=== PATIENT | female | born 1940 | race Caucasian/White ===

== ENCOUNTER 2017-06-01 07:27 | Outpatient (CLI) | payer MEDICARE, OTHER ==
[2017-06-01 10:45] LABS: BASOPHILS % (AUTO) 0.3 %; EOSINOPHILS % (AUTO) 0.8 %; HGB - HEMOGLOBIN 14.9 g/dL (12.0-16.0); LYMPHOCYTES % (AUTO) 2.7 %; MEAN CORPUSCULAR HEMOGLOBIN 31.5 pg (27.0-31.0); MEAN CORPUSCULAR HGB CONC 33.6 g/dL (32.0-36.0); MEAN CORPUSCULAR VOLUME 93.7 fL (81.0-99.0); MEAN PLATELET VOLUME 8.6 fL (7.9-10.8); MONOCYTES % (AUTO) 2.5 %; NEUTROPHILS % (AUTO) 93.7 %; PLT - PLATELET COUNT 144 10^3/uL (130-450); RED BLOOD COUNT 4.73 10^6/uL (4.20-5.40); RED CELL DISTRIBUTION WIDTH 12.4 % (12.0-15.0); WHITE BLOOD COUNT 6.9 x10^3/uL (4.8-10.8)
[2017-06-01 11:02] LABS: ABNORMAL LYMPHS % (MANUAL) 0 %
[2017-06-01 11:05] LABS: ALBUMIN/GLOBULIN RATIO 1.4 (1.0-2.2); ALKALINE PHOSPHATASE 58 IU/L (42-121); ALT ALANINE AMINOTRANSFERASE 17 IU/L (10-60); AST ASPARTATE AMINOTRANSFERASE 23 IU/L (10-42); BILIRUBIN,TOTAL 1.6 mg/dL (0.2-1.0); BUN - BLOOD UREA NITROGEN 22 mg/dL (6-20); CALCIUM 9.1 mg/dL (8.5-10.3); CARBON DIOXIDE - CO2 23 mmol/L (21-32); CHLORIDE 106 mmol/L (101-111); CHOL/HDL RATIO 2.7 (<4.4); CHOLESTEROL 195 mg/dL; CREATININE 0.7 mg/dL (0.4-1.0); GFR - MDRD 81 (>89); GLUCOSE 141 mg/dL (70-100); HDL CHOLESTEROL 73 mg/dL; LDL CHOLESTEROL,CALCULATED 113 mg/dL; LDL/HDL RATIO 1.5 (<4.4); SODIUM 137 mmol/L (135-145); TOTAL PROTEIN 6.9 g/dL (6.7-8.2); VLDL CHOLESTEROL 9 mg/dL
[2017-06-01 11:10] LABS: BAND NEUTROPHILS % (MANUAL) 3 %; EOSINOPHILS # (MANUAL) 0.1 10^3/uL (0-0.7); LYMPHOCYTES # (MANUAL) 0.1 10^3/uL (1.5-3.5); LYMPHOCYTES % (MANUAL) 1 %; MONOCYTES # (MANUAL) 0.1 10^3/uL (0.0-1.0); NEUTROPHILS # (MANUAL) 6.6 10^3/uL (1.5-6.6); NEUTROPHILS % (MANUAL) 93 %; RBC MORPHOLOGY (MULTIPLE) NORMAL APPEARANCE (NORMAL)
[2017-06-01 11:11] LABS: DIFFERENTIAL COMMENT MANUAL DIFFERENTIAL; PLATELET ESTIMATE, MANUAL NORMAL (130-450,000) (NORMAL); PLATELET MORPHOLOGY NORMAL APPEARANCE (NORMAL)
== END 2017-06-01 07:28 | disposition home or self-care (01) ==
LOC: LAB.F 07:27
PROVIDERS: ATTEND Nurse Practitioner Family
DX: R51 Headache (principal); R03.0 Elevated blood-pressure reading, without diagnosis of hypertension; Z13.220 Encounter for screening for lipoid disorders
CPT/HCPCS: 36415; 80053; 80061; 83721; 84443; 85025; 85651

== ENCOUNTER 2017-06-02 07:34 | Outpatient (CLI) | payer MEDICARE, OTHER ==
[2017-06-02 11:13] LABS: HEMOGLOBIN A1C 0.56 g/dL; HEMOGLOBIN A1C % 5.4 % (4.6-6.2)
== END 2017-06-02 07:35 | disposition home or self-care (01) ==
LOC: LAB.F 07:34
PROVIDERS: ATTEND Nurse Practitioner Family
DX: R73.9 Hyperglycemia, unspecified (principal)
CPT/HCPCS: 36415; 82947; 83036

== ENCOUNTER 2017-06-06 11:00 | Outpatient (CLI) | payer MEDICARE, OTHER ==
--- NOTE | 2017-06-06 14:14 | CT Report ---
DATE OF SERVICE: 06/06/2017 CT BRAIN WITHOUT CONTRAST: 06/06/2017 CLINICAL INDICATION: Headache. TECHNIQUE: Axial CT images of the brain were obtained without intravenous contrast. No previous CT is available for comparison. FINDINGS: The ventricles and sulci are normal in size, shape and configuration. The basilar cisterns are patent. There is no evidence of hemorrhage, mass effect, or midline shift. The visualized orbital contents and paranasal sinuses are unremarkable. IMPRESSION: NORMAL CT OF THE BRAIN WITHOUT CONTRAST. In accordance with CT protocol optimization, one or more of the following dose reduction techniques were utilized for this exam: automated exposure control, adjustment of mA and/or KV based on patient size, or use of iterative reconstructive technique. TD: 06/06/2017 14:13
== END 2017-06-06 11:01 | disposition home or self-care (01) ==
LOC: DI 11:00
PROVIDERS: ATTEND Nurse Practitioner Family
DX: R51 Headache (principal)
CPT/HCPCS: 70450

== ENCOUNTER 2020-10-15 10:15 | Outpatient (CLI) | payer MEDICARE, OTHER ==
[2020-10-15 16:19] LABS: BASOPHILS # (AUTO) 0.1 10^3/uL (0.0-0.1); BASOPHILS % (AUTO) 1.4 %; EOSINOPHILS # (AUTO) 0.2 10^3/uL (0.0-0.7); EOSINOPHILS % (AUTO) 5.9 %; HGB - HEMOGLOBIN 14.3 g/dL (12.0-16.0); LYMPHOCYTES # (AUTO) 1.8 10^3/uL (1.5-3.5); LYMPHOCYTES % (AUTO) 51.7 %; MEAN CORPUSCULAR HEMOGLOBIN 31.2 pg (27.0-31.0); MEAN CORPUSCULAR HGB CONC 32.5 g/dL (32.0-36.0); MEAN CORPUSCULAR VOLUME 95.9 fL (81.0-99.0); MEAN PLATELET VOLUME 10.2 fL (7.9-10.8); MONOCYTES # (AUTO) 0.4 10^3/uL (0.0-1.0); MONOCYTES % (AUTO) 9.9 %; NEUTROPHILS # (AUTO) 1.1 10^3/uL (1.5-6.6); NEUTROPHILS % (AUTO) 30.8 %; PLT - PLATELET COUNT 172 10^3/uL (130-450); RED BLOOD COUNT 4.59 10^6/uL (4.20-5.40); RED CELL DISTRIBUTION WIDTH 12.4 % (12.0-15.0); WHITE BLOOD COUNT 3.5 x10^3/uL (4.8-10.8)
[2020-10-15 16:36] LABS: ALBUMIN 4.2 g/dL (3.2-5.5); ALBUMIN/GLOBULIN RATIO 1.5 (1.0-2.2); ALKALINE PHOSPHATASE 73 IU/L (42-121); ALT ALANINE AMINOTRANSFERASE 20 IU/L (10-60); AST ASPARTATE AMINOTRANSFERASE 24 IU/L (10-42); BILIRUBIN,TOTAL 1.5 mg/dL (0.2-1.0); BUN - BLOOD UREA NITROGEN 21 mg/dL (6-20); CALCIUM 9.9 mg/dL (8.5-10.3); CARBON DIOXIDE - CO2 27 mmol/L (21-32); CHLORIDE 105 mmol/L (101-111); CHOL/HDL RATIO 3.1 (<4.4); CHOLESTEROL 247 mg/dL; CREATININE 0.7 mg/dL (0.4-1.0); GFR - MDRD 80 (>89); GLUCOSE 95 mg/dL (70-100); HDL CHOLESTEROL 80 mg/dL; LDL CHOLESTEROL,CALCULATED 152 mg/dL; LDL/HDL RATIO 1.9 (<4.4); POTASSIUM 4.1 mmol/L (3.5-5.0); SODIUM 141 mmol/L (135-145); TRIGLYCERIDES 75 mg/dL; VLDL CHOLESTEROL 15 mg/dL
== END 2020-10-15 10:16 | disposition home or self-care (01) ==
LOC: LAB.S 10:15
PROVIDERS: ATTEND Internal Medicine
DX: R03.0 Elevated blood-pressure reading, without diagnosis of hypertension (principal); Z13.220 Encounter for screening for lipoid disorders
CPT/HCPCS: 36415; 80053; 80061; 83721; 85025

== ENCOUNTER 2020-12-22 08:00 | Outpatient (CLI) | payer MEDICARE, OTHER | END 2020-12-22 23:59 | disposition home or self-care (01) | LOC: LAB.S 08:00 | PROVIDERS: ATTEND Physician Assistant Medical | DX: M60.232 Foreign body granuloma of soft tissue, not elsewhere classified, left forearm (principal) | CPT/HCPCS: 87070; 87077; 87181; 87205 ==

== ENCOUNTER 2021-05-19 07:16 | Outpatient (CLI) | payer MEDICARE, OTHER ==
[2021-05-19 15:11] LABS: BASOPHILS # (AUTO) 0.1 10^3/uL (0.0-0.1); BASOPHILS % (AUTO) 1.8 %; EOSINOPHILS # (AUTO) 0.2 10^3/uL (0.0-0.7); EOSINOPHILS % (AUTO) 5.4 %; HCT - HEMATOCRIT 44.8 % (37.0-47.0); HGB - HEMOGLOBIN 14.8 g/dL (12.0-16.0); LYMPHOCYTES # (AUTO) 1.5 10^3/uL (1.5-3.5); LYMPHOCYTES % (AUTO) 45.5 %; MEAN CORPUSCULAR HEMOGLOBIN 31.6 pg (27.0-31.0); MEAN CORPUSCULAR VOLUME 95.5 fL (81.0-99.0); MEAN PLATELET VOLUME 10.3 fL (7.9-10.8); MONOCYTES # (AUTO) 0.4 10^3/uL (0.0-1.0); MONOCYTES % (AUTO) 11.1 %; NEUTROPHILS # (AUTO) 1.2 10^3/uL (1.5-6.6); NEUTROPHILS % (AUTO) 36.2 %; PLT - PLATELET COUNT 196 10^3/uL (130-450); RED BLOOD COUNT 4.69 10^6/uL (4.20-5.40); RED CELL DISTRIBUTION WIDTH 12.4 % (12.0-15.0); WHITE BLOOD COUNT 3.3 x10^3/uL (4.8-10.8)
[2021-05-19 15:47] LABS: ALBUMIN/GLOBULIN RATIO 1.3 (1.0-2.2); ALKALINE PHOSPHATASE 67 IU/L (42-121); ALT ALANINE AMINOTRANSFERASE 20 IU/L (10-60); AST ASPARTATE AMINOTRANSFERASE 23 IU/L (10-42); BILIRUBIN,TOTAL 1.2 mg/dL (0.2-1.0); BUN - BLOOD UREA NITROGEN 19 mg/dL (6-20); CALCIUM 9.8 mg/dL (8.5-10.3); CARBON DIOXIDE - CO2 27 mmol/L (21-32); CHLORIDE 104 mmol/L (101-111); CHOL/HDL RATIO 2.9 (<4.4); CHOLESTEROL 225 mg/dL; CREATININE 0.9 mg/dL (0.4-1.0); GFR - MDRD 60 (>89); GLUCOSE 94 mg/dL (70-100); HDL CHOLESTEROL 78 mg/dL; LDL CHOLESTEROL,CALCULATED 137 mg/dL; LDL/HDL RATIO 1.8 (<4.4); POTASSIUM 4.1 mmol/L (3.5-5.0); SODIUM 138 mmol/L (135-145); TRIGLYCERIDES 50 mg/dL; VLDL CHOLESTEROL 10 mg/dL
== END 2021-05-19 07:17 | disposition home or self-care (01) ==
LOC: LAB.S 07:16
PROVIDERS: ATTEND Internal Medicine
DX: E78.5 Hyperlipidemia, unspecified (principal); R73.9 Hyperglycemia, unspecified; R03.0 Elevated blood-pressure reading, without diagnosis of hypertension
CPT/HCPCS: 36415; 80053; 80061; 83721; 85025

== ENCOUNTER 2022-06-14 21:06 | Outpatient (CLI) | payer MEDICARE, OTHER | END 2022-06-14 21:07 | disposition critical access hospital (66) | LOC: EMS 21:06 | DX: M54.2 Cervicalgia (principal); R51.9 Headache, unspecified; W01.0XXA Fall on same level from slipping, tripping and stumbling without subsequent striking against object, initial encounter; Y92.009 Unspecified place in unspecified non-institutional (private) residence as the place of occurrence of the external cause | CPT/HCPCS: A0425; A0429 ==

== ENCOUNTER 2022-06-14 21:47 | Emergency (ER) | payer MEDICARE, OTHER ==
--- NOTE | 2022-06-14 21:54 | ED Physician Documentation ---
History of Present Illness - Stated complaint Stated Complaint: GLF, NECK PAIN - Additonal information Additional information: Patient 82-year-old female presenting with chief complaint of fall and left- sided neck pain. Tripped on a wooden floor falling onto the left side of her head and neck. Denies loss of consciousness or use of blood thinning medications. Reports significant neck pain. Took a 5-325 [place] prescribed to her at approximately 2030 hrs. with minimal relief. Review of Systems Constitutional: denies: Fever Eyes: denies: Loss of vision Ears: denies: Loss of hearing Nose: denies: Rhinorrhea / runny nose Throat: denies: Dental pain / toothache Cardiac: denies: Chest pain / pressure Respiratory: denies: Dyspnea GI: denies: Abdominal Pain : denies: Dysuria Skin: denies: Rash Musculoskeletal: reports: Neck pain Neurologic: denies: Generalized weakness PD PAST MEDICAL HISTORY - Present Medications Home Medications: Ambulatory Orders Medication Instructions Recorded Confirmed HYDROcod/ACETAM 5/325 [[place] 5/325] 1 - 2 ea PO Q6H PRN #14 tablet 06/15/22 - Allergies Allergies/Adverse Reactions: Allergies Allergy/AdvReac Type Severity Reaction Status Date / Time No Known Drug Allergies Allergy Verified 06/14/22 21:53 PD ED PE NORMAL - Vitals Vital signs reviewed: Yes - General General: Alert and oriented X 3, Other (Acutely distressed) - HEENT HEENT: Atraumatic, PERRL - Neck Neck: Other (C-collar in place) - Cardiac Cardiac: RRR - Respiratory Respiratory: No respiratory distress - Abdomen Abdomen: Normal bowel sounds, Non tender - Back Back: No spinal TTP Results - Vitals Vitals: Vital Signs - 24 hr 06/14/22 06/14/22 06/15/22 21:54 23:28 00:30 Temperature 36.9 C Heart Rate 75 66 67 Respiratory 16 16 18 Rate Blood Pressure 160/63 H 138/59 H 132/53 H O2 Saturation 97 94 94 06/15/22 06/15/22 06/15/22 01:30 02:30 04:30 Temperature 36.8 C Heart Rate 68 62 67 Respiratory 17 15 17 Rate Blood Pressure 168/63 H 153/61 H 100/68 O2 Saturation 99 98 95 Oxygen O2 Source Room air - Labs Labs: Laboratory Tests 06/15/22 06/15/2206/15/23 00:24 00:25 00:25 WBC 6.2 RBC 4.51 Hgb 14.1 Hct 42.1 MCV 93.3 MCH 31.3 H MCHC 33.5 RDW 11.9 L Plt Count 146 MPV 9.8 Neut # (Auto) 4.7 Lymph # (Auto) 1.1 L Saunders # (Auto) 0.3 Eos # (Auto) 0.0 Baso # (Auto) 0.0 Absolute Nucleated RBC 0.00 Nucleated RBC % 0.0 Sodium 139 Potassium 3.8 Chloride 107 Carbon Dioxide 21 Anion Gap 11.0 BUN 16 Creatinine 0.7 Estimated GFR (MDRD) 80 L Glucose 136 H Calcium 9.7 Total Bilirubin 1.0 AST 26 ALT 21 Alkaline Phosphatase 80 Total Protein 6.7 Albumin 3.9 Globulin 2.8 Albumin/Globulin Ratio 1.4 Lipase 40 SARS-CoV-2 (PCR) NOT DETECTED PD Medical Decision Making - ED course Complexity details: reviewed results, re-evaluated patient, considered differential, d/w patient, d/w family, d/w golf tournament consultant ED course: Patient is 82-year-old female presenting to the emergency department with left- sided neck pain after fallThat occurred earlier this evening. No reportedLoss of consciousness however patient was uncertain whether or not she had struck her head against an object. Fell occur in the family kitchen. No reported use of blood thinning medications. No focal or lateralizing neurologic deficits on arrival to the emergency department. Patient arrived with c-collar in place. No spinal tenderness on exam. CT head and cervical spine demonstrated a type III odontoid fracture with involvement of the left vertebral foramen. Upon this finding imaging was sent and urgent consultation requested with [facility]. Upon review of imaging sent to Dr. Mayen, Recommended immobilization of the neck after CTA confirms no vascular injury and follow-up on outpatient basis. Upon review CTA does not show any indications of aneurysm, dissection or other vascular injury. Patient boarded in the emergency department for several hours as her [place] c-collar was ill fitting and was not providing adequate restriction of her cervical spine. Ultimately an [place] collar was ordered from [facility] and delivered by EMS personnel. Patient was fitted into the [place] collar while in the emergency department. She was reevaluated and remained neurovascularly intact at that time. At this time will discharge for follow-up with the [facility] spine [facility]. Clear return precautions given prior to discharge. Departure - Departure Disposition: 01 Home, Self Care Clinical Impression: Type III fracture of odontoid process Qualifiers: Encounter type: initial encounter Fracture type: closed Qualified Code(s): S12.120A - Other displaced dens fracture, initial encounter for closed fracture Instructions: ED Soft Collar, ED Fx Comp Vertebral Follow-Up: OUMOU MAYEN MD [Physician No Access] - Prescriptions: HYDROcod/ACETAM 5/325 [[place] 5/325] 1 - 2 ea PO Q6H PRN #14 tablet PRN Reason: Pain Comments: Thank you for allowing us to care for you today at [facility]. Today in the emergency department you were diagnosed with a fracture to your second cervical vertebra. Your specific diagnosis is known as a type III odontoid fracture. This is an unstable spinal cord fracture and it is extremely important that you continue to wear the cervical collar given here in the emergency department at all times. I did discuss your care directly with the team at [facility]. Attached you will find contact information for Dr. Oumou Mayen M.D. The spinal specialist who is aware of your case. The [facility] will be contacting you in the next 1 to 2 days to set up a follow-up appointment but I recommend that you contact them first in order to ensure a timely follow-up appointment. Their direct contact number is [phone]. I have sent some medication for pain control to your preferred pharmacy. Please be aware that this medication is both sedating and habit-forming. It does increase your risk for falls and had like you to be extraordinarily careful while taking this medication. If anytime you develop any new or worsening symptoms such as worsening pain or if you begin to develop any strokelike symptoms such as facial droop or weakness in your arms or legs it is importantly return to the emergency department immediately for further evaluation and treatment.
[2022-06-14] MEDS ORDERED: oxyCODONE 5 MG TABLET PO STA (21:56)
[2022-06-14] MEDS ORDERED: iohexoL-300 100 ML VIAL ONE (22:07)
--- NOTE | 2022-06-15 00:16 | CT Report ---
PROCEDURE: CERVICAL SPINE WO INDICATIONS: fall TECHNIQUE: Noncontrast 3 mm thick sections acquired from the skull base to the T4 level. Sagittal and coronal r eformats were then constructed. For radiation dose reduction, the following was used: automated exp osure control, adjustment of mA and/or kV according to patient size. COMPARISON: None. FINDINGS: Image quality: Excellent. Bones: There is a nondisplaced oblique type III odontoid fracture extending from the base of the odo ntoid into the left body of C2 through the vertebral artery foramen and involving the articular surfa ce of C2 lateral mass. No other definite fractures. There is grade 1 retrolisthesis C5 on 6. Multilevel marked facet arthrop athy. Facet ankylosis on the right at C2-3. No visible rib arcs are intact. Soft tissues: Prevertebral soft tissues are normal in thickness. No paravertebral hematomas. No ap ical pneumothoraces. IMPRESSION: 1. Type III odontoid fracture extending through the left vertebral artery foramen and involving the l eft C1-2 articular surface. This is unstable. CT angiogram of the head and neck would be recommended for further assessment. 2. No other acute cervical spine fractures or pathologic subluxation. 3. Discussed with Dr. Ceballos in the emergency room at 1213 hours 06/15/2022. Reviewed by: Dora Cancino MD on 06/15/2022 12:26 AM PST Approved by: Dora Cancino MD on 06/15/2022 12:26 AM PST Station ID: [id number]
--- NOTE | 2022-06-15 00:17 | CT Report ---
PROCEDURE: HEAD WO INDICATIONS: fall TECHNIQUE: Noncontrast 4.5 mm thick angled axial sections acquired from the foramen magnum to the vertex. For r adiation dose reduction, the following was used: automated exposure control, adjustment of mA and/or kV according to patient size. COMPARISON: None. FINDINGS: Image quality: Excellent. CSF spaces: Basal cisterns are patent. No extra-axial fluid collections. Ventricles are normal in size and shape. Brain: No midline shift. No intracranial masses or hemorrhage. [place]-white matter interface is norm al. Skull and face: Calvarium and visualized facial bones are intact, without suspicious lesions. Sinuses: Visualized sinuses and mastoids are clear. IMPRESSION: 1. No CT evidence of acute intracranial trauma. Reviewed by: Dora Cancino MD on 06/15/2022 12:27 AM PST Approved by: Dora Cancino MD on 06/15/2022 12:27 AM [facility] Station ID: [id number]
[2022-06-15 00:31] LABS: BASOPHILS % (AUTO) 0.6 %; EOSINOPHILS % (AUTO) 0.5 %; HCT - HEMATOCRIT 42.1 % (37.0-47.0); HGB - HEMOGLOBIN 14.1 g/dL (12.0-16.0); LYMPHOCYTES # (AUTO) 1.1 10^3/uL (1.5-3.5); LYMPHOCYTES % (AUTO) 18.1 %; MEAN CORPUSCULAR HEMOGLOBIN 31.3 pg (27.0-31.0); MEAN CORPUSCULAR HGB CONC 33.5 g/dL (32.0-36.0); MEAN CORPUSCULAR VOLUME 93.3 fL (81.0-99.0); MEAN PLATELET VOLUME 9.8 fL (7.9-10.8); MONOCYTES # (AUTO) 0.3 10^3/uL (0.0-1.0); MONOCYTES % (AUTO) 5.3 %; NEUTROPHILS # (AUTO) 4.7 10^3/uL (1.5-6.6); NEUTROPHILS % (AUTO) 75.3 %; PLT - PLATELET COUNT 146 10^3/uL (130-450); RED BLOOD COUNT 4.51 10^6/uL (4.20-5.40); RED CELL DISTRIBUTION WIDTH 11.9 % (12.0-15.0); WHITE BLOOD COUNT 6.2 x10^3/uL (4.8-10.8)
[2022-06-15] MEDS ORDERED: iohexoL-300 100 ML VIAL ONE (00:38)
[2022-06-15 00:43] LABS: ALBUMIN 3.9 g/dL (3.2-5.5); ALBUMIN/GLOBULIN RATIO 1.4 (1.0-2.2); CALCIUM 9.7 mg/dL (8.5-10.3); CREATININE 0.7 mg/dL (0.4-1.0); POTASSIUM 3.8 mmol/L (3.5-5.0); TOTAL PROTEIN 6.7 g/dL (6.7-8.2)
[2022-06-15] MEDS ORDERED: iohexoL-300 100 ML VIAL IVP ONE (01:09)
--- NOTE | 2022-06-15 01:29 | CT Report ---
PROCEDURE: ANGIO HEAD W/WO INDICATIONS: C2 cervical spinal fracture CONTRAST: Omni 300 80ml TECHNIQUE: Precontrast 4.5 mm thick angled axial sections acquired from the foramen magnum to the vertex. Afte r the administration of intravenous contrast, 1 mm thick sections acquired through the [place] of [place] is. Postcontrast 4.5 mm thick sections then re-acquired from the foramen magnum to the vertex. 3-di mensional [id number]-yzkoehixg-fgccbypwhp (MIP) and/or volume rendering reformats were acquired of the c entral intracranial vasculature. For radiation dose reduction, the following was used: automated ex posure control, adjustment of mA and/or kV according to patient size. COMPARISON: Correlation made to CT performed earlier the same day. FINDINGS: Image quality: Excellent. Anterior circulation: Intracranial internal carotid arteries are normal in size and flow. The flow within the paired anterior cerebral arteries is normal and symmetric. The flow within the middle cer ebral arteries is normal and symmetric. The anterior communicating artery is seen. No aneurysms are seen. Posterior circulation: The inferior most sspeh-fa-rlto begins just at the level of the C2 fracture i nvolving the left vertebral foramen. The more distal (cranial) vertebral artery is normally opacified , symmetric with the contralateral side, and there is no flap to suggest dissection. Vertebral arteri es join to form a normal basilar artery without aneurysm at the tip. The right posterior cerebral art ashu arises from the right internal carotid artery. Flow within the posterior cerebral arteries is nor mal and symmetric. No aneurysms are seen. CSF spaces: Ventricles are normal in size and shape. Basal cisterns are patent. No extra-axial flu id collections. Brain: No midline shift. No intracranial bleeds or masses. [place]-white matter interface appears int act. Skull and face: Calvarium and facial bones appear intact, without suspicious lesions. Sinuses: Visualized sinuses and mastoids are clear. IMPRESSION: 1. No evidence of left vertebral artery abnormality distal to the vertebral foramen fracture at C2. 2. Normal CTA of the brain. Reviewed by: Dora Cancino MD on 06/15/2022 1:28 AM PST Approved by: Dora Cancino MD on 06/15/2022 1:28 AM PST Station ID: [email or web address]
--- NOTE | 2022-06-15 01:36 | CT Report ---
PROCEDURE: ANGIO NECK W INDICATIONS: C2 cervical spinal fracture CONTRAST: Omni 300 80ml TECHNIQUE: After the administration of intravenous contrast, 1.5 mm axial sections acquired from the aortic arch to the [place]. Coronal 3-D maximum intensity projection (MIP) and/or volume rendering ref ormats were then performed. For radiation dose reduction, the following was used: automated exposur e control, adjustment of mA and/or kV according to patient size. COMPARISON: None. FINDINGS: Image quality: Excellent. Carotid system: The great vessels demonstrate a conventional anatomy as they arise from the aortic a rch. The origins of the common carotid arteries appear patent. The common carotid arteries demonstr ate normal calibers and courses. Minor calcification at the carotid bulbs bilaterally without lumina l stenosis. The bifurcation regions appear normal bilaterally. The internal carotid arteries demonst rate normal caliber and course. Posterior circulation: The origins of the vertebral arteries appear patent. The more superior porti ons of the vertebral arteries demonstrate normal course and caliber until the level of C2. At the le alli of C2, the left vertebral artery demonstrates a 90 degree angle, turning directly lateral, and a second 90 degree angle turning posteriorly. There is no evidence of extravasation or dissection. As t he vertebral artery enters the foramen, there may be slight compression by one of the fracture fragme nts. Soft tissues: Visualized neck soft tissues demonstrate no suspicious abnormalities. The thyroid is normal in size and there are no incidental findings. Bones: No suspicious bony lesions. Type III C2 fracture as described previously with extension to t he left vertebral artery foramen and left lateral mass articular surface. There is minor prevertebral soft tissue swelling. Visualized cervical spine appears normally aligned. IMPRESSION: 1. There is no evidence of vertebral arterial extravasation or dissection at the level of the C2 frac ture, vertebral artery takes an abnormal course and may be slightly compressed fracture fragment. 2. The carotid system and right vertebral artery are widely patent. The estimate of stenosis included in the report of the imaging study was calculated using the NASCET method Reviewed by: Dora Cancino MD on 06/15/2022 1:35 AM PST Approved by: Dora Cancino MD on 06/15/2022 1:35 AM PST Station ID: [id number]
[2022-06-15] MEDS ORDERED: oxyCODONE/ACET 5/325 Prepack 4 PO STA (01:44)
[2022-06-15] MEDS ORDERED: ONDANSETRON ODT 4 MG TABLET TL STA (02:27)
[2022-06-15] MEDS ORDERED: oxyCODONE 5 MG TABLET PO STA ×2 (02:27→05:32)
[2022-06-15 04:31] VITALS: BP 100/68
== END 2022-06-15 06:02 | disposition home or self-care (01) ==
LOC: EDUNIT# → ED 21:47
DX: S12.120A Other displaced dens fracture, initial encounter for closed fracture (principal); W19.XXXA Unspecified fall, initial encounter; Z20.822 Contact with and (suspected) exposure to COVID-19
CPT/HCPCS: 36415; 70450; 70496; 70498; 72125; 80053; 83690; 85025; 87635; 99284; A9270; Q0162; Q9967

== ENCOUNTER 2022-06-16 11:09 | Outpatient (CLI) | payer MEDICARE, OTHER | END 2022-06-16 23:59 | disposition EMS.NT | LOC: EMS 11:09 | DX: R51.9 Headache, unspecified (principal); M54.2 Cervicalgia ==